=== PATIENT | female | born 1985 | race Caucasian/White ===

== ENCOUNTER 2017-10-31 04:05 | Emergency (ER) | payer OTHER, MEDICAID ==
[~2017-10-31] VITALS: Ht 170.2 cm; Wt 65.8 kg
[~2017-10-31 04:05] MED LIST: CLARITIN10 MG; ULTRACET TABLET1 TAB PO
[2017-10-31] MEDS ORDERED: B12 PO (04:13)
[2017-10-31] MEDS ORDERED: FLONASE 0.05%50 MCG NASAL (04:13)
[2017-10-31] MEDS ORDERED: ZYRTEC10 M5 PO (04:14)
[2017-10-31 04:21] LABS: ABSOLUTE BASOPHILS 0.1 thou/uL (0.0-0.2); ABSOLUTE EOSINOPHILS 0.3 thou/uL (0.0-0.7); ABSOLUTE LYMPHOCYTES 2.8 thou/uL (0.8-5.3); ABSOLUTE MONOCYTES 0.8 thou/uL (0.0-1.2); ABSOLUTE NEUTROPHILS 11.9 thou/uL (1.6-8.1); BASOPHILS 0.4 %; EOSINOPHILS 1.8 %; HEMATOCRIT 35.4 % (37.0-47.0); HEMOGLOBIN 11.8 gm/dL (12.0-15.0); LYMPHOCYTES 17.7 %; MCH 30.6 pg (26.0-34.0); MCHC 33.5 g/dL (28.0-37.0); MCV 91.4 fL (80.0-100.0); MONOCYTES 5.3 %; MPV 7.4 fl. (7.2-11.1); NUCLEATED RBCS 0 /100WBC; PLATELET COUNT* 353 thou/uL (150-400); POLYS 74.8 %; RBC 3.87 mil/uL (4.20-5.00); RDW-CV 13.2 % (10.5-14.5); WBC 15.9 thou/uL (4.0-11.0)
[2017-10-31] MEDS ORDERED: ZOFRAN ODT4 MG PO (04:30)
[2017-10-31 04:36] LABS: CALCIUM 8.6 mg/dL (8.5-10.1); CREATININE 0.8 mg/dL (0.6-1.3); POTASSIUM 3.5 mmol/L (3.5-5.1)
[2017-10-31 04:46] LABS: ALBUMIN 3.4 g/dL (3.4-5.0); TOTAL BILIRUBIN 0.6 mg/dL (<0.1-1.0); TOTAL PROTEIN 6.1 g/dL (6.4-8.2)
[2017-10-31 05:44] LABS: URINE BILIRUBIN NEGATIVE (Negative); URINE BLOOD NEGATIVE (Negative); URINE CLARITY SL CLOUDY; URINE COLOR YELLOW; URINE GLUCOSE-RANDOM NEGATIVE (Negative); URINE KETONES NEGATIVE (Negative); URINE LEUKOCYTES-REFLEX NEGATIVE (Negative); URINE NITRITE-REFLEX NEGATIVE (Negative); URINE PROTEIN NEGATIVE (Negative); URINE SPECIFIC GRAVITY <= 1.005 (1.005-1.030); URINE UROBILINOGEN 0.2 E.U./dl (0.2-1.0)
[2017-10-31 05:53] LABS: BACTERIA-REFLEX 1-9 Few /HPF (None Seen); CASTS None Seen /LPF (None Seen); MUCUS 0-3 Light strn/LPF (None Seen); SQUAMOUS 0-3 Few /LPF (0-3); URINE RBC 0-2 Rare /HPF (0-2); URINE WBC-REFLEX 0-5 Rare /HPF (0-5)
[2017-10-31 05:54] LABS: AMORPHOUS URATES Few /LPF (None Seen)
[2017-10-31 07:29] VITALS: BP 121/87
--- NOTE | 2017-10-31 15:19 | EKG ---
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
--- NOTE | 2017-11-04 14:29 | EKG ---
[place] [address] ELECTROCARDIOGRAM REPORT Name: DENISA LEMUS Room: [facility]#: [id number] Admission: 10/31/17 Attend Phys: Discharge: 10/31/17 Date of : 81 Report #: [id number] THIS REPORT FOR: //name// [facility] Test Date: 2017-11-04 Test Time: 09:29:38 Pat Name: DENISA LEMUS Department: Room: [facility] Gender: F Dryland Farmer: I : 1985 Requested By: Fred Capellan Order Number: [id number] Reading MD: Kris Conley Measurements Intervals [place] Rate: 65 P: 53 VA: 154 QRS: 57 QRSD: 94 T: 2 QT: 427 QTc: 444 Interpretive Statements Sinus rhythm RSR' in V1 or V2, right VCD or RVH Compared to ECG 10/31/2017 04:25:57 Right ventricular hypertrophy now present RSR' in V1 or V2 now present Electronically Signed On 11-04-2017 14:29:18 CDT by Kris Conley [email or web address] <ELECTRONICALLY SIGNED> By: Kris Conley MD, [facility] 11/04/17 1429 0929 0929 Kris Conley MD, [facility] /EPI
[2017-12-02] MEDS ORDERED: XANAX 0.25 MG0.25 MG PO (07:01)
[2017-12-02] MEDS ORDERED: ALLEGRA ALLERG180 MG PO (07:01)
[2017-12-03] MEDS ORDERED: PAIN & FEVER325 MG PO (09:09)
[2017-12-03] MEDS ORDERED: XARELTO20 MG PO (09:09)
[2017-12-03] MEDS ORDERED: IRON325 PO (09:10)
[2017-12-03] MEDS ORDERED: ZYRTEC10 M5 PO (09:10)
[2017-12-03] MEDS ORDERED: B12 PO (09:10)
== END 2017-10-31 07:32 | disposition short-term general hospital (02) ==
LOC: M.ERS 04:05
PROVIDERS: Emergency Medicine
DX: N83.201 Unspecified ovarian cyst, right side (principal); Z90.710 Acquired absence of both cervix and uterus; Z88.8 Allergy status to other drugs, medicaments and biological substances

== ENCOUNTER 2017-11-03 10:40 | Inpatient (IN) | payer OTHER, MEDICAID ==
[2017-11-03] VITALS (7 sets, daily range): BP systolic 85–125; BP diastolic 54–79
[~2017-11-03] VITALS: Ht 170.2 cm; Wt 66.0 kg
[~2017-11-03 10:40] MED LIST changes: +B12 PO; +FLONASE 0.05%50 MCG NASAL; +ZOFRAN ODT4 MG PO; +ZYRTEC10 M5 PO
[2017-11-03] MEDS ORDERED: IRON325 PO (10:50)
[2017-11-03] MEDS ORDERED: NAPROSYN500 MG PO (10:51)
[2017-11-03] MEDS ORDERED: PERCOCET PO (10:51)
[2017-11-03 11:02] LABS: ABSOLUTE BASOPHILS 0.1 thou/uL (0.0-0.2); ABSOLUTE EOSINOPHILS 0.3 thou/uL (0.0-0.7); ABSOLUTE LYMPHOCYTES 3.4 thou/uL (0.8-5.3); ABSOLUTE MONOCYTES 0.9 thou/uL (0.0-1.2); ABSOLUTE NEUTROPHILS 14.4 thou/uL (1.6-8.1); BASOPHILS 0.6 %; EOSINOPHILS 1.5 %; HEMATOCRIT 34.7 % (37.0-47.0); HEMOGLOBIN 11.4 gm/dL (12.0-15.0); LYMPHOCYTES 17.8 %; MCH 30.5 pg (26.0-34.0); MCHC 32.8 g/dL (28.0-37.0); MONOCYTES 4.6 %; MPV 7.9 fl. (7.2-11.1); NUCLEATED RBCS 0 /100WBC; PLATELET COUNT* 364 thou/uL (150-400); POLYS 75.5 %; RBC 3.73 mil/uL (4.20-5.00); RDW-CV 13.4 % (10.5-14.5); WBC 19.1 thou/uL (4.0-11.0)
[2017-11-03 11:13] LABS: CALCIUM 8.8 mg/dL (8.5-10.1); CREATININE 0.8 mg/dL (0.6-1.3); POTASSIUM 3.6 mmol/L (3.5-5.1)
[2017-11-03 11:14] LABS: APTT 26.6 Seconds (25.0-31.3); INR 1.5; PROTIME 14.5 Seconds (9.20-11.50)
[2017-11-03 11:32] LABS: ALBUMIN 3.6 g/dL (3.4-5.0); CK-MB MASS 1.4 ng/mL (<0.5-3.6); MAGNESIUM 1.9 mg/dL (1.8-2.4); TOTAL BILIRUBIN 0.3 mg/dL (<0.1-1.0); TOTAL PROTEIN 6.9 g/dL (6.4-8.2); TROPONIN-I LEVEL 0.26 ng/mL (<0.06)
--- NOTE | 2017-11-03 16:48 | 2DMMODE ---
[place] [address] 2 D/M-MODE ECHOCARDIOGRAM Name: DENISA LEMUS Room: [address] IN [facility]#: [id number] Admission: 11/03/17 Attend Phys: Brodie Cox Discharge: Date of : 81 Date of Service: 11/03/17 1648 Report #: [id number] THIS REPORT FOR: //name// APPROVED REPORT Study performed: 11/03/2017 15:58:23 EXAM: Comprehensive 2D, Doppler, and color-flow Echocardiogram Patient Location: In-Patient Room #: [facility] Status: routine BSA: 1.76 HR: 77 bpm BP: 128/89 mmHg Rhythm: NSR Other Information Study Quality: Good Indications Abnormal ECG 2D Dimensions LVEF(%): 67.13 (>50%) IVSd: 8.38 (7-11mm) LVOT Diam: 19.99 (18-24mm) LVDd: 39.07 mm PWd: 8.85 (7-11mm) Ascending Ao: 28.40 (22-36mm) LVDs: 24.74 (25-40mm) Aortic Root: 27.41 mm Gama's LVEF: 67.13 % Volumes Left Atrial Volume (Systole) LA ESV Index: 19.50 mL/m2 Aortic Valve AoV Peak Jordy.: 1.09 m/s AO Peak Gr.: 4.73 mmHg LVOT Max P.80 mmHg AO Mean Gr.: 2.58 mmHg LVOT Mean P.37 mmHg LVOT Max V: 0.84 m/s AO V2 VTI: 17.77 cm LVOT Mean V: 0.54 m/s MONIK (VTI): 2.66 cm2 LVOT V1 VTI: 15.04 cm Mitral Valve E/A Ratio: 2.14 [place] [address] 2 D/M-MODE ECHOCARDIOGRAM Name: DENISA LEMUS Room: [address] IN .R.#: [id number] Admission: 11/03/17 Attend Phys: Brodie Cox Discharge: Date of : 81 Date of Service: 11/03/17 1648 Report #: [id number] MV Decel. Time: 190.13 ms MV E Max Jordy.: 0.95 m/s MV PHT: 55.14 ms MVA (PHT): 3.99 cm2 TDI E/Lateral E': 5.28 E/Medial E': 5.28 Medial E' Jordy.: 0.18 m/s Lateral E' Jordy.: 0.18 m/s Pulmonary Valve PV Peak Jordy.: 0.65 m/s PV Peak Gr.: 1.71 mmHg Tricuspid Valve TR Peak Gr.: 16.43 mmHg RVSP: 21.00 mmHg Left Ventricle The left ventricle is normal size. There is normal LV segmental wall motion. There is normal left ventricular wall thickness. Left ventricular systolic function is normal. The left ventricular ejection fraction is within the normal range. LVEF is 55-60%. The left ventricular diastolic function is normal. Right Ventricle The right ventricle is normal size. The right ventricular systolic function is normal. Atria The left atrium size is normal. The right atrium size is normal. Aortic Valve The aortic valve is normal in structure. No aortic regurgitation is present. There is no aortic valvular stenosis. Mitral Valve The mitral valve is normal in structure. Moderate mitral regurgitation. No evidence of mitral valve stenosis. Tricuspid Valve The tricuspid valve is normal in structure. Mild tricuspid regurgitation. The RVSP is ____21___ mmHg. Pulmonic Valve Pulmonic valve is not well visualized.. There is no pulmonic [place] [address] 2 D/M-MODE ECHOCARDIOGRAM Name: DENISA LEMUS Room: [address] IN M.R.#: [id number] Admission: 11/03/17 Attend Phys: Brodie Cox Discharge: Date of : 81 Date of Service: 11/03/17 1648 Report #: [id number] Great Vessels The aortic root is normal in size. IVC is normal in size and collapses with >50% inspiration Pericardium There is no pericardial effusion. <Conclusion> LVEF is 55-60%. Moderate mitral regurgitation. <ELECTRONICALLY SIGNED> By: Fred Capellan MD, FACC 11/03/171647 47 47 Fred Capellan MD, FACC /INF
[2017-11-04] VITALS (16 sets, daily range): BP systolic 79–121; BP diastolic 45–82
[2017-11-04 04:43] LABS: HEMATOCRIT 29.6 % (37.0-47.0); HEMOGLOBIN 9.8 gm/dL (12.0-15.0); MCHC 33.1 g/dL (28.0-37.0); MCV 93.4 fL (80.0-100.0); MPV 8.1 fl. (7.2-11.1); RBC 3.16 mil/uL (4.20-5.00); RDW-CV 13.8 % (10.5-14.5); WBC 11.3 thou/uL (4.0-11.0)
[2017-11-04 05:30] LABS: ALBUMIN 3.1 g/dL (3.4-5.0); CALCIUM 8.3 mg/dL (8.5-10.1); CREATININE 0.7 mg/dL (0.6-1.3); MAGNESIUM 2.3 mg/dL (1.8-2.4); POTASSIUM 4.1 mmol/L (3.5-5.1); TOTAL BILIRUBIN 0.3 mg/dL (<0.1-1.0); TOTAL PROTEIN 5.7 g/dL (6.4-8.2)
--- NOTE | 2017-11-04 08:54 | NUR ---
0799 ASSUMED CARE OF PATIENT. PLEASE SEE DOCUMENTED ASSESSMENT. NSR
--- NOTE | 2017-11-04 13:19 | NUR ---
DR LA HERE. PATIENT IS NOW TELE STATUS
--- NOTE | 2017-11-04 14:17 | NUR ---
PATIENT TO MOVE TO ROOM 201. REPORT TO BASILIO ARIAS
--- NOTE | 2017-11-04 14:25 | NUR ---
TRANSFERRED PER WHEELCHAIR TO ROOM 201 WITH ALL RECORDS AND BELONGINGS
--- NOTE | 2017-11-04 14:52 | NUR ---
PT ARRIVED TO THE FLOOR FROM THE ICU AT 1427. PT ORIENTED TO UNIT AND SERVICES. PT A&O X4 CALM AND COOPERATIVE. VSS ON ROOM AIR. BUDGET ENGINEER APPLIED AND PT IS TRACING NSR, STRIP PRINTED AND PLACED IN CHART. NURSING WILL CONTINUE TO MONITOR.
[2017-11-05] VITALS: BP 93/53
[2017-11-05 03:53] VITALS: BP 86/57
--- NOTE | 2017-11-05 04:22 | NUR ---
RECIEVED REPORT AND ASSUMED CARE OF PATIENT AT 1930. WIRE ROLLER IN PLACE TRACING SR. VSS ON ROOM AIR. PATIENT DENIES PAIN AND DISCOMFORT. SOTALOL ADMINISTERED SCHEDULED, BP SLIGHTLY LOW THIS AM, 86/57 WITH MAP OF 63 . PATIENT ASYMPTOMATIC AND STATES THAT SHE "TYPICALLY RUNS LOW." PATIENT UP INDEPENDENTLY IN ROOM, TOLERATING ACTIVITY WELL. FIANCE AT BEDSIDE THROUGHOUT SHIFT. HOURLY ROUNDING OBSERVED. CALL LIGHT WITHIN REACH
[2017-11-05 06:32] LABS: CALCIUM 8.4 mg/dL (8.5-10.1); CREATININE 0.7 mg/dL (0.6-1.3); POTASSIUM 3.7 mmol/L (3.5-5.1); TROPONIN-I LEVEL 0.39 ng/mL (<0.06)
[2017-11-05 08:02] VITALS: BP 104/68
[2017-11-05] MEDS ORDERED: SORINE 80 MG TA80 M1 PO (09:57)
--- NOTE | 2017-11-05 11:55 | NUR ---
ASSUMED CARE OF PT AT 0715. PT A&O X4 CALM AND COOPERATIVE. VSS ON ROOM AIR, C/O ABD PAIN EFFECTIVELY CONTROLLED WIOTH PRN PAIN MEDICATIONS. PT UP AD AMBER AND GAIT STEADY. PT TRACING NSR ON THE MONITOR. PT DISCHARGED HOME WITH PRESCRIPTIONS AND ALL PERSONAL BELONGINGS. PT VERBALIZED UNDERSTANDING OF DC INSTRUCTIONS THAT INCLUDED F/U CARE AND MEDICATION MANAGEMENT. IV AND ACCOUNT DEVELOPMENT MANAGER REMOVED PRIOR TO DISCHARGE.
--- NOTE | 2017-11-05 12:21 | CON ---
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 The history is obtained from the patient. She states during her first 14 years ago, she was having episodes where her heart was raced. She apparently wore a Holter monitor and was found to have SVT. She apparently did see a parliamentary archivist at that time. She apparently was placed on no medications. Since that time, she continues to have brief palpitations about once or twice a month. They do not last very long. However, recently they have been more frequent. She then was admitted to [place] 4 nights ago complaining of abdominal pain. She apparently was admitted and found to have a hematoma on the ovary. She underwent laparoscopy. She was then discharged 3 days ago. However, she woke up last night about 1:30 with her heart racing. It lasted all night long. She then got up to the bathroom and apparently had a brief loss of consciousness. She was brought here to [place] by private vehicle. She was noted to be in a narrow complex tachycardia. She was given adenosine, had a brief pause and then converted. I was asked to see her for further evaluation and treatment. She denies a history of a heart murmur. She does have occasional chest tightness with exertion. She stays fairly active. Denies exertional dyspnea or edema. PAST MEDICAL AND SURGICAL HISTORY: Otherwise, she is a . She had a hysterectomy in the past for cervical cancer. She has no history of hypertension or diabetes. MEDICATIONS: She currently is on no medications. FAMILY HISTORY: Her mother had atrial fibrillation. 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 No smoking. Rarely drinks alcohol. REVIEW OF SYSTEMS: She has had no history of stroke, asthma, peptic ulcer disease, liver disease, kidney disease. PHYSICAL EXAMINATION: [place] [address] CONSULTATION Name: DENISA LEMUS Room: [address]#: [id number] Admission: 11/03/17 Attend Phys: Jayna Dougherty Discharge: 11/05/17 Date of : 81 Report #: [id number] GENERAL: Revealed a young female who appeared in no distress. VITAL SIGNS: She had a blood pressure of 120/80, pulse is 80. She is afebrile. HEENT: She is anicteric, conjunctiva pink. Mucous membranes moist. NECK: Veins do not appear distended. CHEST: Clear to auscultation. CARDIAC: Regular rate and rhythm. ABDOMEN: Soft. EXTREMITIES: Had no edema. SKIN: Warm and dry. NEUROLOGIC: Nonfocal. DIAGNOSTIC DATA: Her initial ECG showed a narrow complex tachycardia at 180 beats per minute with nonspecific ST and T-wave change. Unfortunately, we do not have ECG with her in sinus rhythm, although in the monitor, she now appears to be in sinus rhythm. Her workup in the Emergency Room today, she had portable chest x-ray that showed normal heart size, clear lung ac. CT scan of the chest using a PE protocol showed no pulmonary embolus. Her lab work, sodium 142. Her liver function studies are normal. Troponin 0.26. BNP 2660. TSH 0.2, T4 1.1. White blood cell count 19,000; hemoglobin 11.4. IMPRESSION AND RECOMMENDATIONS: 1. Paroxysmal supraventricular tachycardia. I would recommend starting antiarrhythmic therapy. I would recommend starting Rythmol. I would check an echocardiogram. I would consider referral for radiofrequency ablation. 2. History of cervical cancer. 3. Recent laparoscopy for hematoma. <ELECTRONICALLY SIGNED> By: Fred Capellan MD, FACC 11/05/17 1221 1408 1955Dabethany Capellan MD, FACC /nt
--- NOTE | 2017-11-05 14:38 | EKG ---
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
[2017-11-08 18:11] LABS: METANEPHRINE-PL 26 pg/mL (0-62); NORMETANEPHRINE - PL 76 pg/mL (0-145)
--- NOTE | 2017-11-10 13:58 | EKG ---
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
--- NOTE | 2017-11-10 13:59 | EKG ---
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
[2017-12-02] MEDS ORDERED: XANAX 0.25 MG0.25 MG PO (07:01)
[2017-12-02] MEDS ORDERED: ALLEGRA ALLERG180 MG PO (07:01)
[2017-12-03] MEDS ORDERED: XARELTO20 MG PO (09:09)
[2017-12-03] MEDS ORDERED: PAIN & FEVER325 MG PO (09:09)
[2017-12-03] MEDS ORDERED: IRON325 PO (09:10)
[2017-12-03] MEDS ORDERED: B12 PO (09:10)
[2017-12-03] MEDS ORDERED: ZYRTEC10 M5 PO (09:10)
== END 2017-11-05 10:10 | disposition home or self-care (01) | DRG 310 ==
LOC: M.ERS 10:40 → M.TBA-ER 12:11 → M.ICU 15:31 → M.2W 11-04 14:35
PROVIDERS: Family Medicine; ADMIT Internal Medicine
DX: I47.1 Supraventricular tachycardia (principal); E03.9 Hypothyroidism, unspecified; I10 Essential (primary) hypertension; E11.9 Type 2 diabetes mellitus without complications; Z82.49 Family history of ischemic heart disease and other diseases of the circulatory system; Z88.6 Allergy status to analgesic agent; Z90.710 Acquired absence of both cervix and uterus; Z85.41 Personal history of malignant neoplasm of cervix uteri; Z79.899 Other long term (current) drug therapy

== ENCOUNTER → 2018-05-01 | Outpatient (CLI) | payer OTHER, MEDICAID ==
[~2018-05-01] MED LIST changes: +ALLEGRA ALLERG180 MG PO; +IRON325 PO; +NAPROSYN500 MG PO; +PAIN & FEVER325 MG PO; +PERCOCET PO; +SORINE 80 MG TA80 M1 PO; +XANAX 0.25 MG0.25 MG PO; +XARELTO20 MG PO
== END ==
LOC: M.ULTRA 14:00
DX: N83.201 Unspecified ovarian cyst, right side (principal)

== ENCOUNTER → 2018-06-08 | Outpatient (CLI) | payer OTHER | LOC: M.ULTRA 10:30 | DX: N83.202 Unspecified ovarian cyst, left side (principal); Z90.710 Acquired absence of both cervix and uterus ==

== ENCOUNTER 2018-07-05 22:10 | Observation (INO) | payer OTHER ==
[~2018-07-05] VITALS: Ht 170.2 cm; Wt 65.8 kg
[2018-07-05 22:17] VITALS: BP 149/95
[2018-07-05] MEDS ORDERED: RYTHMOL SR325 MG PO (22:20)
[2018-07-05] MEDS ORDERED: ASPIR 8181 MG PO (22:20)
[2018-07-05 22:48] LABS: ABSOLUTE BASOPHILS 0.1 thou/uL (0.0-0.2); ABSOLUTE EOSINOPHILS 0.2 thou/uL (0.0-0.7); ABSOLUTE LYMPHOCYTES 2.6 thou/uL (0.8-5.3); ABSOLUTE MONOCYTES 0.5 thou/uL (0.0-1.2); ABSOLUTE NEUTROPHILS 7.7 thou/uL (1.6-8.1); BASOPHILS 0.7 %; EOSINOPHILS 1.5 %; HEMOGLOBIN 14.5 gm/dL (12.0-15.0); LYMPHOCYTES 23.6 %; MCH 30.5 pg (26.0-34.0); MCHC 33.7 g/dL (28.0-37.0); MCV 90.5 fL (80.0-100.0); MONOCYTES 4.8 %; MPV 7.9 fl. (7.2-11.1); NUCLEATED RBCS 0 /100WBC; PLATELET COUNT* 385 thou/uL (150-400); POLYS 69.4 %; RBC 4.75 mil/uL (4.20-5.00); RDW-CV 12.7 % (10.5-14.5); WBC 11.1 thou/uL (4.0-11.0)
[2018-07-05 22:54] LABS: ANION GAP 13 mmol/L (7-16); BUN 10 mg/dL (7-18); CALCIUM 9.2 mg/dL (8.5-10.1); CHLORIDE 100 mmol/L (98-107); CO2 26 mmol/L (21-32); CREATININE 0.8 mg/dL (0.6-1.3); GLUCOSE 104 mg/dL (70-99); POTASSIUM 3.2 mmol/L (3.5-5.1); SODIUM 139 mmol/L (136-145)
[2018-07-05 23:01] LABS: ALBUMIN 4.6 g/dL (3.4-5.0); ALKALINE PHOSPHATASE 87 U/L (46-116); LIPASE 177 U/L (73-393); SGOT 15 U/L (15-37); SGPT 16 U/L (30-65); TOTAL BILIRUBIN 0.4 mg/dL (<0.1-1.0); TOTAL PROTEIN 8.5 g/dL (6.4-8.2); TROPONIN-I LEVEL <0.06 ng/mL (<0.06)
[2018-07-06 01:47] VITALS: BP 135/82
[2018-07-06 08:00] VITALS: BP 111/69
--- NOTE | 2018-07-06 09:52 | EKG ---
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: : 1985 Requested By: Nicolás Live Order Number: [id number] MD: Fred Capellan Measurements Intervals [place] Rate: 66 P: 73 CT: 160 QRS: 59 QRSD: 113 T: 48 QT: 419 QTc: 439 Interpretive Statements Sinus rhythm Incomplete right bundle branch block Compared to ECG 11/05/2017 08:03:06 no change Electronically Signed On 07-06-2018 9:52:26 ABRASIVE WORKER by Fred Capellan [email or web address] <ELECTRONICALLY SIGNED> By: Fred Capellan MD, [facility] 07/06/18 0952 2254 2254 Fred Capellan MD, [facility] /EPI
[2018-07-06 11:07] VITALS: BP 111/69
[2018-07-06] MEDS ORDERED: PERCOCET PO (11:12)
== END 2018-07-06 11:42 | disposition home or self-care (01) ==
LOC: M.ERS 22:10 → M.3W 07-06 01:28 → M.TBA-ER 07-06 01:28 → M.3W 07-06 02:04
PROVIDERS: Emergency Medicine Emergency Medical Services; ADMIT Internal Medicine
DX: N83.201 Unspecified ovarian cyst, right side (principal); F41.1 Generalized anxiety disorder; I47.1 Supraventricular tachycardia; I45.6 Pre-excitation syndrome; D18.03 Hemangioma of intra-abdominal structures; Z90.710 Acquired absence of both cervix and uterus; Z85.41 Personal history of malignant neoplasm of cervix uteri; Z79.899 Other long term (current) drug therapy; Z79.82 Long term (current) use of aspirin